=== PATIENT | female | born 1980 | race African-American/Black ===

== ENCOUNTER 2020-04-24 18:44 | Emergency (ER) | payer OTHER ==
[~2020-04-24] VITALS: Ht 175.3 cm; Wt 158.8 kg
[2020-04-24] MEDS ORDERED: LOSARTAN-HCTZ1 EAC3 PO (19:01)
[2020-04-24 19:35] LABS: ABSOLUTE NEUTROPHILS 6.6 thou/uL (1.4-8.2); BASOPHILS 0.6 % (0.0-2.0); HEMOGLOBIN 8.1 gm/dL (12.0-15.0); LYMPHOCYTES 23.5 % (24.0-44.0); MCH 18.5 pg (26.0-34.0); MCHC 29.9 g/dL (28.0-37.0); MCV 61.8 fL (80.0-100.0); MONOCYTES 7.6 % (1.0-8.0); PLATELET COUNT 489 thou/uL (150-400); POLYS 67.3 % (36.0-66.0); RBC 4.38 mil/uL (4.20-5.00); RDW 20.2 % (10.5-14.5); WBC 9.8 thou/uL (4.0-11.0)
[2020-04-24 19:47] LABS: CALCIUM 9.5 mg/dL (8.5-10.1); CREATININE 0.8 mg/dL (0.6-1.0); POTASSIUM 3.5 mmol/L (3.5-5.1)
[2020-04-24 19:53] LABS: ALBUMIN 3.9 g/dL (3.4-5.0); TOTAL BILIRUBIN 1.2 mg/dL (0.2-1.0); TOTAL PROTEIN 8.6 g/dL (6.4-8.2)
[2020-04-24 20:35] LABS: ANISOCYTOSIS 2+; HYPOCHROMASIA 3+; MICROCYTES 3+; OVALOCYTES 1+; POLYCHROMASIA 1+
[2020-04-24] MEDS ORDERED: PREDNISONE 10 M10 M1 PO (20:42)
[2020-04-24 22:44] VITALS: BP 171/88
== END 2020-04-24 22:55 | disposition home or self-care (01) ==
LOC: ER 18:44
PROVIDERS: Physician Assistant
DX: R22.43 Localized swelling, mass and lump, lower limb, bilateral (principal); R22.33 Localized swelling, mass and lump, upper limb, bilateral; Z79.899 Other long term (current) drug therapy

== ENCOUNTER 2021-06-05 10:53 | Emergency (ER) | payer OTHER ==
[~2021-06-05] VITALS: Ht 172.7 cm; Wt 136.1 kg
[~2021-06-05 10:53] MED LIST: LOSARTAN-HCTZ1 EAC3 PO; PREDNISONE 10 M10 M1 PO
[2021-06-05 11:41] LABS: ABSOLUTE NEUTROPHILS 6.8 thou/uL (1.4-8.2); BASOPHILS 1.1 % (0.0-2.0); EOSINOPHILS 0.7 % (0.0-3.0); HEMATOCRIT 35.4 % (37.0-47.0); HEMOGLOBIN 11.5 gm/dL (12.0-15.0); MCH 24.5 pg (26.0-34.0); MCHC 32.4 g/dL (28.0-37.0); MCV 75.7 fL (80.0-100.0); MONOCYTES 5.7 % (1.0-8.0); PLATELET COUNT 425 thou/uL (150-400); POLYS 70.5 % (36.0-66.0); RBC 4.68 mil/uL (4.20-5.00); WBC 9.7 thou/uL (4.0-11.0)
[2021-06-05 11:50] LABS: CALCIUM 9.6 mg/dL (8.5-10.1); CREATININE 0.8 mg/dL (0.6-1.0); POTASSIUM 3.7 mmol/L (3.5-5.1)
[2021-06-05] MEDS ORDERED: LOSARTAN-HCTZ1 EAC3 PO (12:58)
[2021-06-05 13:05] VITALS: BP 171/91
--- NOTE | 2021-06-05 15:10 | EKG ---
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1980 Requested By: Carlitos Jacobsen Order Number: [id number] MD: Feliciano Stephenson Measurements Intervals [place] Rate: 85 P: 63 NE: 150 QRS: -42 QRSD: 107 T: 11 QT: 409 QTc: 487 Interpretive Statements Sinus rhythm Left atrial enlargement Left axis deviation Abnormal R-wave progression, late transition Borderline prolonged QT interval No previous ECG available for comparison Electronically Signed On 06-05-2021 15:10:04 CDT by Feliciano Stephenson [email or web address] <ELECTRONICALLY SIGNED> By: Feliciano Stephenson MD, [facility] 06/05/21 1510 1104 [id number] Feliciano Stephenson MD, FACC /EPI
== END 2021-06-05 13:06 | disposition home or self-care (01) ==
LOC: ER 10:53
PROVIDERS: Nurse Practitioner
DX: M79.89 Other specified soft tissue disorders (principal); Z90.89 Acquired absence of other organs; Z90.49 Acquired absence of other specified parts of digestive tract

== ENCOUNTER 2021-06-08 19:15 | Emergency (ER) | payer OTHER ==
[~2021-06-08] VITALS: Ht 172.7 cm; Wt 136.1 kg
[2021-06-08] MEDS ORDERED: LASIX 40 MG TAB40 MG PO (20:26)
[2021-06-08 20:33] VITALS: BP 167/100
== END 2021-06-08 20:34 | disposition home or self-care (01) ==
LOC: ER 19:15
DX: R60.0 Localized edema (principal); Z90.49 Acquired absence of other specified parts of digestive tract; Z79.899 Other long term (current) drug therapy